=== PATIENT | female | born 1965 | race Caucasian/White ===

== ENCOUNTER 2020-04-19 20:29 | Emergency (ER) | payer BC ==
[~2020-04-19] VITALS: Ht 170.2 cm; Wt 79.4 kg
[2020-04-19] MEDS ORDERED: BUSPIRONE (20:39)
[2020-04-19] MEDS ORDERED: LISINOPRIL (20:40)
[2020-04-19 20:58] LABS: ABSOLUTE BASOPHILS 0.1 thou/uL (0.0-0.2); ABSOLUTE EOSINOPHILS 0.1 thou/uL (0.0-0.7); ABSOLUTE MONOCYTES 0.7 thou/uL (0.0-1.2); ABSOLUTE NEUTROPHILS 4.3 thou/uL (1.6-8.1); BASOPHILS 0.6 %; HEMATOCRIT 38.1 % (37.0-47.0); HEMOGLOBIN 13.1 gm/dL (12.0-15.0); MCH 31.2 pg (26.0-34.0); MCHC 34.3 g/dL (28.0-37.0); MCV 90.7 fL (80.0-100.0); MPV 7.8 fl. (7.2-11.1); NUCLEATED RBCS 0 /100WBC; PLATELET COUNT* 287 thou/uL (150-400); POLYS 53.4 %; RDW-CV 12.8 % (10.5-14.5); WBC 8.1 thou/uL (4.0-11.0)
[2020-04-19 21:08] LABS: CREATININE 0.9 mg/dL (0.6-1.3); POTASSIUM 3.7 mmol/L (3.5-5.1)
[2020-04-19 21:09] LABS: PROTIME 10.2 Seconds (9.20-11.50)
[2020-04-19 21:19] LABS: ALBUMIN 3.7 g/dL (3.4-5.0); TOTAL BILIRUBIN 0.3 mg/dL (<0.1-1.0); TOTAL PROTEIN 7.4 g/dL (6.4-8.2)
[2020-04-19 22:05] LABS: URINE BILIRUBIN NEGATIVE (Negative); URINE BLOOD TRACE (Negative); URINE CLARITY CLEAR; URINE COLOR YELLOW; URINE GLUCOSE-RANDOM NEGATIVE (Negative); URINE KETONES NEGATIVE (Negative); URINE NITRITE-REFLEX NEGATIVE (Negative); URINE PROTEIN NEGATIVE (Negative); URINE SPECIFIC GRAVITY <= 1.005 (1.005-1.030); URINE UROBILINOGEN 0.2 E.U./dl (0.2-1.0)
[2020-04-19 22:07] LABS: URINE LEUKOCYTES-REFLEX 2+ (Negative)
[2020-04-19 22:22] LABS: CASTS None Seen /LPF (None Seen); SQUAMOUS >10 Many /LPF (0-3)
[2020-04-19 22:23] LABS: CRYSTALS None Seen /LPF (None Seen); URINE RBC None Seen /HPF (0-2)
[2020-04-19 23:45] VITALS: BP 115/60
[2020-04-19] MEDS ORDERED: MACROBID 100 M100 M1 PO (23:45)
--- NOTE | 2020-04-20 15:41 | EKG ---
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: : 1965 Requested By: Claritza Zhang Order Number: [id number] MD: Ruperto Murrieta Measurements Intervals [place] Rate: 71 P: 53 NE: 142 QRS: 56 QRSD: 101 T: 33 QT: 367 QTc: 399 Interpretive Statements Sinus rhythm Ventricular premature complex Minimal ST depression, inferior leads No previous ECG available for comparison Electronically Signed On 04-20-2020 15:41:42 [employer] by Ruperto Murrieta [email or web address] <ELECTRONICALLY SIGNED> By: Mtateo Murrieta MD, [facility] 04/20/20 1541 33 33 Matteo Murrieta MD, [facility] /EPI
== END 2020-04-19 23:45 | disposition home or self-care (01) ==
LOC: M.ERS 20:29
PROVIDERS: Emergency Medicine
DX: R07.89 Other chest pain (principal); R53.83 Other fatigue; R06.02 Shortness of breath; N39.0 Urinary tract infection, site not specified; Z20.828 Contact with and (suspected) exposure to other viral communicable diseases; Z79.899 Other long term (current) drug therapy

== ENCOUNTER → 2020-07-30 | Outpatient (CLI) | payer BC ==
[~2020-07-30] MED LIST: BUSPIRONE; LISINOPRIL; MACROBID 100 M100 M1 PO
== END ==
LOC: M.MRI 14:13
PROVIDERS: ATTEND Family Medicine
DX: M75.51 Bursitis of right shoulder (principal); M25.511 Pain in right shoulder; F41.9 Anxiety disorder, unspecified; I10 Essential (primary) hypertension

== ENCOUNTER → 2021-04-04 | Outpatient (CLI) | payer BC ==
[2021-04-04 12:22] LABS: CREATININE 0.9 mg/dL (0.6-1.3)
== END ==
LOC: M.LAB 11:48 → M.CT 13:00 → M.LAB 04-06 08:00 → M.CT 04-06 09:00
PROVIDERS: ATTEND Family Medicine
DX: N28.1 Cyst of kidney, acquired (principal); R16.1 Splenomegaly, not elsewhere classified